=== PATIENT | male | born 1995 | race Caucasian/White ===

== ENCOUNTER 2017-11-17 07:35 | Emergency (ER) | payer SELFPAY ==
[~2017-11-17] VITALS: Ht 167.6 cm; Wt 93.2 kg
[2017-11-17 07:39] VITALS: BP 148/90; PULSE 77; RESP 16; TEMP 98.4; O2SAT 98
--- NOTE | 2017-11-17 08:27 | PD ---
HPI Chief Complaint: Abdominal Pain Time Seen by Provider: 08:20 Travel History International Travel<30 days: No Contact w/Intl Traveler<30days: No Traveled to known affect area: No History of Present Illness HPI This patient woke up this morning and had chest pain. 6:50 AM. It lasted 20 minutes. At 7:10 AM it resolves spontaneously. It was located in the center sternum and radiated toward his right lower chest. He denies shortness of breath or hemoptysis or fever or any injury. He denies any medical problem. At this point he feels relatively well. Symptom severity was moderate but has resolved. No alleviating factors. No exacerbating factors. PFSH Past Medical History Hx Anticoagulant Therapy: No Autoimmune Disease: No Blood Disorders: No Anxiety: No Depression: No Cardiovascular Problems: Yes (HTN) Diabetes: No Diminished Hearing: No Gastrointestinal Disorders: No Genitourinary: No Musculoskeletal: No Neurologic: No Psychiatric: No Respiratory: No Sickle Cell Disease: No Tetanus Vaccination: Unknown Past Surgical History Surgical History: No Previous Surgery Other Surgery: No Social History Alcohol Use: Yes (RARE) Tobacco Use: No Substance Use: No Allergies-Medications (Allergen,Severity, Reaction): Coded Allergies: No Known Allergies (Verified Allergy, Severe, 11/17/17) Reported Meds & Prescriptions Reported Meds & Active Scripts Active No Active Prescriptions or Reported Medications Review of Systems General / Constitutional: No: Fever Eyes: No: Visual changes HENT: No: Headaches Cardiovascular: Positive: Chest Pain or Discomfort Respiratory: No: Shortness of Breath Gastrointestinal: No: Abdominal Pain Genitourinary: No: Dysuria Musculoskeletal: No: Pain Skin: No Rash Neurologic: No: Weakness Psychiatric: No: Depression Endocrine: No: Polydipsia Hematologic/Lymphatic: No: Easy Bruising Physical Exam Narrative GENERAL: Well-nourished, well-developed patient in no apparent distress. SKIN: Focused skin assessment reveals no rash and nodules. Skin is Warm and dry. HEAD: Atraumatic. Normocephalic. EYES: Pupils equal and round. No scleral icterus. No injection or drainage. ENT: No nasal bleeding or discharge. Mucous membranes pink and moist. NECK: Trachea midline. No JVD. CARDIOVASCULAR: Regular rate and rhythm. No murmur appreciated. RESPIRATORY: No accessory muscle use. Clear to auscultation. Breath sounds equal bilaterally. GASTROINTESTINAL: Abdomen soft, non-tender, nondistended. Hepatic and splenic margins not palpable. MUSCULOSKELETAL: No obvious deformities. No clubbing. No cyanosis. No edema. NEUROLOGICAL: Awake and alert. No obvious cranial nerve deficits. Motor grossly within normal limits. Normal speech. PSYCHIATRIC: Appropriate mood and affect; insight and judgment normal. Data Data Last Documented VS Vital Signs Date Time Temp Pulse Resp B/P (MAP) Pulse Ox O2 Delivery O2 Flow Rate FiO2 11/17/17 07:39 98.4 77 16 148/90 (109) 98 Orders Orders Chest, Pa & Lat (11/17/17 ) Electrocardiogram (11/17/17 ) [facility] Medical Decision Making Medical Screen Exam Complete: Yes Emergency Medical Condition: Yes Medical Record Reviewed: Yes Differential Diagnosis Differential diagnosis includes OK, angina, pericarditis, pleurisy, GERD, anxiety. Narrative Course I have reviewed the patient's electronic medical record. I reviewed his EKG which is normal I reviewed his PA and lateral chest x-ray which is normal Patient feels well. Etiology of his pain is unclear but its gone and he should follow-up with primary care Diagnosis Primary Impression: Chest pain at rest Additional Instructions: The patient was advised to follow up with their physician and return if they worsen. Med/Other Pt SpecificInfo: Other Scripts No Active Prescriptions or Reported Meds Disposition: 01 DISCHARGE HOME Condition: Stable Boone Wise MD Nov 17, 2017 08:27
--- NOTE | 2017-11-17 09:03 | RADRPT ---
EXAM DATE/TIME: 11/17/2017 08:46 [facility] COMPARISON: No previous studies available for comparison. INDICATIONS : Chest pain. MEDICAL HISTORY : None. SURGICAL HISTORY : None. ENCOUNTER: Initial ACUITY: 1 day PAIN SCORE: 11/05 LOCATION: Bilateral chest FINDINGS: PA and lateral views of the chest demonstrate the lungs to be symmetrically aerated without evidence of mass, infiltrate or effusion. The cardiomediastinal contours are unremarkable. Osseous structure s are intact. CONCLUSION: Normal examination. Luis Blue Jr., MD on November 17, 2017 at 9:00 Board Certified Radiologist. This report was verified electronically.
--- NOTE | 2017-11-17 19:25 | EKG ---
Date Performed: 11/17/2017 Time Performed: 08:35:45 PTAGE: 22 years EKG: Sinus rhythm WITH SINUS ARRHYTHMIA NORMAL ECG NO PREVIOUS TRACING DOCTOR: Sabiha Anaya Interpretating Date/Time 11/17/2017 19:23:43
== END 2017-11-17 09:25 | disposition home or self-care (01) ==
LOC: PHED 07:35
DX: R07.9 Chest pain, unspecified (principal); R94.31 Abnormal electrocardiogram [ECG] [EKG]; I10 Essential (primary) hypertension
CPT/HCPCS: 71046; 93005; 99284